=== PATIENT | male | born 1980 ===

== ENCOUNTER 2021-01-04 10:37 | Outpatient (CLI) | payer OTHER ==
[2021-01-04 11:26] VITALS: BP 119/85
--- NOTE | 2021-01-04 11:26 | SLEEP CARE CONSULTATION ---
Information from patient questionnaire entered by Whitney Black. I have reviewed and concur with the information entered by Whitney Black. This document represents the service I personally performed and the decisions made by me, Claudia Riggins ARNP. History of Present Illness Service Date and Time: 01/04/2021 1037 Reason for Visit: New patient Chief Complaint: reports: Unrefreshed sleep, Snoring, Excessive daytime sleepiness, Fatigue, Frequent awakenings at night Date of Onset: over 5 years Usual bedtime: 10-11 pm Time it takes to fall asleep: 1-2 hours Snores at night: Yes Observed to quit breathing while asleep: No Sleeps alone due to snoring: No Number of times waking at night: 2-3 times Reasons for waking at night: reports: Choking, Gasping for air, Bathroom, Other (noise, unknown reason). denies: Snoring Toss, Turn, or Twitch while sleeping: Yes Recalls having dreams: Yes Usually gets out of bed at: 5:15-5:25 am Feels refreshed in the morning: No Morning headache: No (sometimes) Sleepy or fatigued during the day: Yes Ever fallen asleep while driving: No Takes day naps: No Prior sleep studies: No Additional HPI information: I had the pleasure of seeing YOSELIN JUDD today regarding the possibility of him having a sleep disorder. His current complaints are excessive daytime sleepiness, fatigue, frequent night awakenings, snoring and unrefreshed sleep. He feels he can't sleep much, he has trouble relaxing enough to go to sleep and he wakes up frequently at night. He wakes up with nightmares almost every night. He also gets up to use the bathroom even though he is trying to limit his liquids. He has started taking a sleeping pill, Prazosin 1 mg, that has been prescribed for him. He took it last night and still stayed awake until 1130 that night. He feels alcohol does relax him and he sleeps better but he does not want to use alcohol to sleep. - Parasomnia Symptoms Ever been unable to move upon waking from sleep: No Walks in sleep: No (doesn't know) Talks in sleep: Yes Ever acted out dreams in sleep: Yes Ever felt weak in the knees when startled or emotional: Yes Bothered by creepy, crawly, restless sensations in legs: Yes Problems with memory or concentration: Yes (has ADHD, on adderall) Subjective Initial [place] Sleepiness Scale score: 8 (in 2020) Past Medical History Past Medical History: reports: Diabetes (pre-diabetes), Anxiety, Attention deficit Social History The patient's occupation is a Active . [place] Have you smoked in the past 12 months: Yes Cigarettes per day (20/pack): 7 Years of smokin Smoking Pack Years: 3.0 Alcohol use: Yes Alcohol amount and frequency: 4-6 drinks 1-3 times a month Caffeine use: No Family History Family history of sleep disordered breathing: No Family Hx Sleep Apnea: Father: Snoring Allergies and Home Medications Drug allergies reviewed: Yes (NKDA) Home medication list reviewed: Yes Allergy and home medication list: Adderall Prazosin Review of Systems Weight gain over past 5 years: 20 Cardiovascular: reports: palpitations, chest pain Respiratory: reports: wheeze Gastrointestinal: reports: diarrhea Urinary: reports: frequency Neurological: reports: disorientation Psychiatric: reports: Attention Deficit Hyperactivity, anxiety, mood disorder Ear/Nose/Throat: denies: tonsillectomy, wisdom teeth removed (some removed) Endocrine: reports: sluggishness, increased urination Musculoskeletal: reports: joint pain, muscle pain or cramping Immunologic: reports: rash Physical Exam Blood Pressure: 119/85 Cuff size: wrist Heart Rate: 91 O2 Saturation: 98 Height: 5 ft 8 in Weight: 228 lb Body Mass Index: 34.7 BMI Classification: Obese Neck circumference: 16.5 (inches) Nostrils: patent to airflow Mouth and throat: narrow oropharynx Soft palate: long Hard palate: normal Uvula: normal Uvula visualization: 50% Mallampati Class II Tongue: normal in size Tonsils: 1+ Chin and jaw: normal size and position Neck: normal w/o lymphadenopathy or thyromegaly Heart: regular rate and rhythm Lungs: clear bilaterally Impression and Plan 1. Suspected Obstructive Sleep Apnea-Hypopnea Syndrome, as suggested by a history of loud and irregular snoring, gasping or choking in sleep, frequent awakening during the night, unrefreshed sleep, cognitive impairment, and excessive daytime sleepiness. Narrow oropharynx and obesity are common predisposing factors for obstructive sleep apnea-hypopnea syndrome. I recommend proceeding to polysomnography to confirm the diagnosis and to assess severity. If the patient has significant sleep disordered breathing, a manual CPAP titration study will also be performed to find the optimal treatment pressure. I informed the patient of what the sleep studies involve and after some discussion, obtained agreement to proceed. The pathophysiology of obstructive sleep apnea-hypopnea syndrome was discussed with the patient and health risks of cardiovascular and cerebrovascular disease if not treated. Risks of drowsy driving discussed in detail and patient advised to avoid long distance driving and to puller through at the first sign of drowsiness. Patient agreed to plan. * Schedule polysomnography +- manual CPAP titration study and return in 1-2 weeks after the study to discuss result and initiate therapy. * Avoid long distance driving or driving when feeling sleepy. * Avoid alcohol, sedative and muscle relaxant around bedtime. * Attempt to lose weight. * Review instructions provided by trained office staff on how to prepare for the sleep study. * Return for follow-up after sleep study completed. Counseling Topics: Weight loss health impact Visit Type: In Office Time Spent with Patient (minutes): 31 Provider Statement: I spent 100% of the Face to Face Visit with the patient with greater than 50% spent counseling the patient and coordination of care.
== END 2021-01-04 10:38 | disposition home or self-care (01) ==
LOC: SC 10:37
PROVIDERS: ATTEND Nurse Practitioner Family
DX: G47.10 Hypersomnia, unspecified (principal); G47.8 Other sleep disorders; R06.83 Snoring; R41.89 Other symptoms and signs involving cognitive functions and awareness; E66.9 Obesity, unspecified; Z68.34 Body mass index [BMI] 34.0-34.9, adult
CPT/HCPCS: 99203; 99212

== ENCOUNTER 2021-01-13 14:37 | Outpatient (CLI) | payer OTHER | END 2021-01-13 14:38 | disposition home or self-care (01) | LOC: SC 14:37 | PROVIDERS: ATTEND Nurse Practitioner Family | DX: G47.33 Obstructive sleep apnea (adult) (pediatric) (principal); R09.02 Hypoxemia | CPT/HCPCS: 95806 ==

== ENCOUNTER 2021-01-20 10:38 | Outpatient (CLI) | payer OTHER ==
--- NOTE | 2021-01-20 10:59 | SLEEP CARE CONSULTATION ---
Information from patient questionnaire entered by Whitney Black. I have reviewed and concur with the information entered by Whitney Black. This document represents the service I personally performed and the decisions made by , Claudia Riggins ARNP. History of Present Illness Service Date and Time: 01/20/2021 1038 Initial [place] Sleepiness Scale score: 8 (in 2020) Current [place] Sleepiness Scale score: 6 Additional HPI information: YOSELIN JUDD returns for follow up and results of the recently performed home sleep study. I explained the pathophysiology behind obstructive sleep apnea. We then spent quite a bit of time discussing different treatment options. For mild obstructive sleep apnea, surgery and oral appliance are alternatives to nasal CPAP therapy but in moderate or severe cases, nasal CPAP is the most effective and reliable treatment. Because apnea is primarily in supine position, then positional management therapy could be effective. Methods discussed such as positioning with pillows, using a T-shirt with tennis balls in the back, and shown commercial products that have a pillow format on back to prevent supine sleep. I reviewed the impact of weight changes on sleep apnea and strongly recommended losing weight. After some discussion, the patient opted to go with the nasal CPAP therapy. Nasal autoCPAP set at 4-15 cmH20 will be ordered with rationale explained. A manual titration study will be ordered if unable to find optimal pressure with office adjustments. I explained how CPAP machine works with sample devices [id number] Dreamstation and [employer] [id number] and what to expect when using the machine. Using CPAP every night in order to get used to it was emphasized. Patient advised to put CPAP mask on before getting into bed so as not to fall asleep without CPAP. To assist acclimation to CPAP use, it could also be used for a short time during day while reading or watching TV. The patient was instructed to call the CPAP supplier to discuss any mechanical problem that may occur. If the mask given is uncomfortable or is difficult to keep on through the night even with adjustment, contact the CPAP supplier as many will replace with another mask style if notified before 30 days. If snoring or perceives is not getting enough air or too much air from the machine, notify this office. [facility] patient education PAP tips reviewed and given to patient. Patient counseled not drink alcohol less than 4 hours before bedtime as it can increase snoring and apnea. Patient was cautioned about risks of drowsy driving until sleepiness symptoms resolve. Sleep Study - Results Type of Sleep Study: Home sleep study Prior sleep studies: No Polysomnography/Home Sleep Study results: Physician Impression: The quality of the study is fair due to partial loss of airflow signal.. The length of the study is adequate (> 240 minutes). Please also see the tabulated and graphic data. 1. Obstructive Sleep Apnea-Hypopnea (ICD-10 G47.33), moderate, with an AHI of 15.5/hr and teodoro SaO2 of 76%. During the study, the patient had 27 apneas (26 obstructive, 0 central, 1 mixed) and 37 hypopneas. The longest episode lasted 66.0 seconds. The respiratory event s occurred more frequently during supine sleep (supine AHI was 16.2 and non-supine, 7.10). 2. Hypoxemia (ICD-10 R09.02), moderate, with the lowest oxygen saturation of 76 % and 42.9 minutes with SaO2 under 90%. Baseline oxygen saturation was normal (Average oxygen saturation was 92%). Allergies and Home Medications Home medication list reviewed: Yes (no new meds) Review of Systems Review of systems same as previous: Yes (no changes) Physical Exam Heart Rate: 78 O2 Saturation: 96 Height: 5 ft 8 in Weight: 232 lb Body Mass Index: 35.2 BMI Classification: Obese Impression and Plan 1. Obstructive Sleep Apnea-Hypopnea Syndrome, moderate, with lowest oxygen saturation of 76%. Obviously this is the cause of the patients symptoms of unrefreshed sleep, and excessive daytime sleepiness. Positive pressure therapy could benefit pre-diabetes, anxiety and attention deficit. As mentioned above, the patient will be started on nasal autoCPAP therapy with pressure set at 4-15 cmH2O. A manual titration study will be completed if unable to find optimal treatment pressure with office adjustments. Compliance guidelines also reviewed. A copy of compliance guidelines will be given for reference at check out. Because the apnea is more severe supine, I instructed to avoid sleeping supine using pillow positioning until able to start CPAP use. 2. Hypoxemia, moderate, with the lowest oxygen saturation of 76 % and 42.9 minutes with SaO2 under 90%. His baseline oxygen saturation was normal with an average oxygen saturation of 92%. * Nasal auto CPAP therapy, pressure at 4-15 cm H2O. * Attempt to lose weight. * Avoid alcohol consumption near bedtime. * Avoid supine sleep until using CPAP. * The patient is again cautioned about driving until sleepiness completely resolves. * Return one month after CPAP obtained. I will assess response to therapy and compliance at that time. Counseling Topics: Weight loss health impact Visit Type: In Office Time Spent with Patient (minutes): 27 Provider Statement: I spent 100% of the Face to Face Visit with the patient with greater than 50% spent counseling the patient and coordination of care.
== END 2021-01-20 10:39 | disposition home or self-care (01) ==
LOC: SC 10:38
PROVIDERS: ATTEND Nurse Practitioner Family
DX: G47.33 Obstructive sleep apnea (adult) (pediatric) (principal); R09.02 Hypoxemia
CPT/HCPCS: 99212; 99213

== ENCOUNTER 2021-03-21 09:02 | Outpatient (CLI) | payer OTHER ==
--- NOTE | 2021-03-21 09:30 | SLEEP CARE CONSULTATION ---
Information from patient questionnaire entered by Whitney Black. I have reviewed and concur with the information entered by Whitney Black. This document represents the service I personally performed and the decisions made by , Claudia Riggins ARNP. History of Present Illness Service Date and Time: 03/21/2021 0902 Previous diagnosis: Moderate, Obstructive Sleep Apnea-Hypopnea Syndrome AHI: 15.5 (in 2020) Reason for follow up: first compliance Equipment type: CPAP Equipment obtained from: [employer] (got initial supplies, waiting on first order) Mask style: Nasal Mask brand: Respironics Backup mask available: No (will keep old mask when replaced) Last cushion change: 5 weeks Prior sleep studies: Yes Year and Where: 2020 - [facility] Type of Sleep Study: Home sleep study HPI additional information: YOSELIN JUDD was diagnosed to have moderate, AHI 15.5, obstructive sleep apnea- hypopnea syndrome and returned today for CPAP therapy first compliance follow- up. CPAP Compliance Data - Data Reviewed with Patient Average duration of nightly device use: 4 hr 42 min Compliance rate %: 70 (from 02/09/21-03/10/21)(67 last 30) Current pressure setting (cmH2O): 4-15 (median 9.0, avg 12.8, max 13.8) Humidity settin Average residual AHI: 2.3 Subjective Missed days of use due to: reports: other (watch/duty) Patient concerns: reports: nasal congestion, dry mouth, nose, throat (sometimes). denies: aerophagia, mask discomfort, air blowing in eyes, mask leak noise, condensation in mask/hose, epistaxis, other Observed to snore while using device: No Current pressure setting perceived as: too high (not all the time) On therapy, patient: reports: sleeping better, awakening more refreshed, being more awake and alert during the day, more rested overall. denies: drowsiness while driving Initial [place] Sleepiness Scale score: 8 (in 2020) Current [place] Sleepiness Scale score: 6 Allergies and Home Medications Home medication list reviewed: Yes (no new meds) Review of Systems Review of systems same as previous: Yes (no changes) Physical Exam Heart Rate: 79 O2 Saturation: 98 Height: 5 ft 8 in Weight: 236 lb Body Mass Index: 35.9 BMI Classification: Obese Impression and Plan 1. Obstructive Sleep Apnea-Hypopnea Syndrome, moderate, with adequate treatment compliance and good apnea control. On CPAP therapy, the patient has better sleep quality and is more rested overall. Patient pressure might be a little too high but he discovered that this felt this way when he was wearing the mask while awake. He feels he is getting more used to it and getting to know how it works. He is satisfied with current treatment and feels the pressure is comfortable. The patients pressure will be changed to autoCPAP 9-14 cmH20. Patient advised to contact me if pressure change is uncomfortable so that it can be adjusted. Goals for apnea control discussed. Patient encouraged to try to lose weight to reduce apneas and improve overall health. Patient's apnea severity and rationale for treatment to reduce apnea, improve sleep quality and reduce cardiovascular and cerebrovascular events was reviewed. I also reviewed the benefit of consistent device use of CPAP for pre-diabetes, anxiety and attention deficit disorders. * Change auto CPAP pressure to 9-14 cmH2O * Notify me if snoring with mask or feeling that the pressure is too much or too little * Attempt to lose weight * Call this office if any problems using CPAP * Return for follow up in 1-2 months, or sooner if concerns arise Counseling Topics: Spare mask, Weight loss health impact Visit Type: In Office Time Spent with Patient (minutes): 20 Provider Statement: I spent 100% of the Face to Face Visit with the patient with greater than 50% spent counseling the patient and coordination of care.
== END 2021-03-21 09:03 | disposition home or self-care (01) ==
LOC: SC 09:02
PROVIDERS: ATTEND Nurse Practitioner Family
DX: G47.33 Obstructive sleep apnea (adult) (pediatric) (principal); E66.9 Obesity, unspecified; Z68.35 Body mass index [BMI] 35.0-35.9, adult
CPT/HCPCS: 99212; 99213

== ENCOUNTER 2021-05-25 09:14 | Outpatient (CLI) | payer OTHER ==
--- NOTE | 2021-05-25 09:35 | SLEEP CARE CONSULTATION ---
Information from patient questionnaire entered by Whitney Black. I have reviewed and concur with the information entered by Whitney Black. This document represents the service I personally performed and the decisions made by , Claudia Riggins ARNP. History of Present Illness Service Date and Time: 05/25/2021 0914 Previous diagnosis: Moderate, Obstructive Sleep Apnea-Hypopnea Syndrome AHI: 15.5 (in 2020) Reason for follow up: other (2 month with pressure change) Equipment type: CPAP Equipment obtained from: [employer] (getting supplies as needed) Mask style: Nasal Backup mask available: Yes (other mask) Last cushion change: 2 weeks ago Prior sleep studies: Yes Year and Where: 2020 - [facility] Type of Sleep Study: Home sleep study HPI additional information: YOSELIN JUDD was diagnosed to have moderate, AHI 15.5, obstructive sleep apnea- hypopnea syndrome and returned today for CPAP therapy 2 month with pressure change follow-up. CPAP Compliance Data - Data Reviewed with Patient Average duration of nightly device use: 6 hr 22 min Compliance rate %: 95 (60 days) Current pressure setting (cmH2O): 9-14 Humidity settin Average residual AHI: 0.7 Subjective Missed days of use due to: reports: travel Patient concerns: reports: nasal congestion, dry mouth, nose, throat (sometimes dry mouth). denies: aerophagia, mask discomfort, air blowing in eyes, mask leak noise, condensation in mask/hose, epistaxis, other Observed to snore while using device: No Current pressure setting perceived as: comfortable On therapy, patient: reports: sleeping better, awakening more refreshed, being more awake and alert during the day, more rested overall. denies: drowsiness while driving Initial [place] Sleepiness Scale score: 8 (in 2020) Current [place] Sleepiness Scale score: 5 Allergies and Home Medications Home medication list reviewed: Yes (no changes) Review of Systems Review of systems same as previous: Yes (no changes) Physical Exam Heart Rate: 75 O2 Saturation: 99 Height: 5 ft 8 in Weight: 230 lb Body Mass Index: 34.9 BMI Classification: Obese Impression and Plan 1. Obstructive Sleep Apnea-Hypopnea Syndrome, moderate, with good treatment compliance and good apnea control. On CPAP therapy, the patient has better sleep quality and is more rested overall. Patient is very satisfied with current treatment and feels the pressure is comfortable. Patient has been having some increase in nasal congestion and mouth dryness. He is pretty sure he is not breathing with his mouth open at night. He does have a history of allergies. Oral dryness can be reduced by adjusting humidity setting higher or heated hose lower or by adjusting both settings. Verbal instructions given on how to change humidity and heated hose settings with rationale explaining why to change. Patient advised that he can use nasal saline spray to help reduce nasal congestion as needed. He voiced understanding. He has lost 4 pounds and is continue to try to lose weight by increasing his exercise. I encouraged him to continue his efforts. Patient's apnea severity and rationale for treatment to reduce apnea, improve sleep quality and reduce cardiovascular and cerebrovascular events was reviewed. I also reviewed the benefit of consistent device use of CPAP for anxiety, pre-diabetes and ADD. * Continue auto CPAP pressure at 9-14 cmH2O * Notify me if snoring with mask or feeling that the pressure is too much or too little * Continue to try to lose weight * Call this office if any problems using CPAP * Return for follow up in 3 months, or sooner if concerns arise Counseling Topics: Spare mask, Weight loss health impact Visit Type: In Office Time Spent with Patient (minutes): 13 Provider Statement: I spent 100% of the Face to Face Visit with the patient with greater than 50% spent counseling the patient and coordination of care.
== END 2021-05-25 09:15 | disposition home or self-care (01) ==
LOC: SC 09:14
PROVIDERS: ATTEND Nurse Practitioner Family
DX: G47.33 Obstructive sleep apnea (adult) (pediatric) (principal); E66.9 Obesity, unspecified; Z68.34 Body mass index [BMI] 34.0-34.9, adult
CPT/HCPCS: 99212

== ENCOUNTER 2021-10-05 12:41 | Outpatient (CLI) | payer OTHER ==
[2021-10-05 13:27] VITALS: BP 129/89
--- NOTE | 2021-10-05 13:27 | SLEEP CARE CONSULTATION ---
Information from patient questionnaire entered by Lary Montoya MA. I have reviewed and concur with the information entered by Lary Montoya MA. This document represents the service I personally performed and the decisions made by , Claudia Riggins ARNP. History of Present Illness Service Date and Time: 10/05/2021 1241 Previous diagnosis: Moderate, Obstructive Sleep Apnea-Hypopnea Syndrome AHI: 15.5 (in 2020) Reason for follow up: other (4 MONTH ) Equipment type: CPAP Equipment obtained from: [employer] (getting supplies as needed) Mask style: Nasal Backup mask available: Yes (old mask) Last cushion change: 1.5 months Prior sleep studies: Yes Year and Where: 2020 - [facility] Type of Sleep Study: Home sleep study HPI additional information: YOSELIN JUDD was diagnosed to have moderate, AHI 15.5, obstructive sleep apnea- hypopnea syndrome and returned today for CPAP therapy four month follow-up. Sleep Study - Results Type of Sleep Study: Home sleep study Prior sleep studies: Yes Year and Where: 2020 - [facility] CPAP Compliance Data - Data Reviewed with Patient Average duration of nightly device use: 6 hours 11 minutes Compliance rate %: 83 Current pressure setting (cmH2O): 9-14 Average residual AHI: 0.6 Central apnea: 0.0 Obstructive apnea: 0.1 Subjective Missed days of use due to: reports: travel Patient concerns: denies: aerophagia, mask discomfort, air blowing in eyes, mask leak noise, condensation in mask/hose, nasal congestion, dry mouth, nose, throat, epistaxis, other Observed to snore while using device: No Current pressure setting perceived as: comfortable On therapy, patient: reports: sleeping better, awakening more refreshed, being more awake and alert during the day, more rested overall. denies: drowsiness while driving Initial [place] Sleepiness Scale score: 8 (in 2020) Current [place] Sleepiness Scale score: 7 (2021) Allergies and Home Medications Known drug allergies: No Drug allergies reviewed: Yes Home medication list reviewed: Yes (INCREASED ADDERALL BY 10MG) Review of Systems Review of systems same as previous: Yes (no changes) Physical Exam Vital signs obtained and entered by: Jerica MONTOYA CMA [facility] Blood Pressure: 129/89 (RIGHT, PULSE 88) Heart Rate: 80 O2 Saturation: 98 (WITH PAPER MASK) Height: 5 ft 8 in Weight: 233 lb (WITH UNIFORM AND BOOTS) Weight change since last visit: 3 lb gain Body Mass Index: 35.4 BMI Classification: Obese Impression and Plan 1. Obstructive Sleep Apnea-Hypopnea Syndrome, moderate, with good treatment compliance and excellent apnea control. On CPAP therapy, the patient has better sleep quality and is more rested overall. Patient is satisfied with current therapy and has significant improvement of his sleep apnea. Patient's apnea severity and rationale for treatment to reduce apnea, improve sleep quality and reduce cardiovascular and cerebrovascular events was reviewed. I also reviewed the benefit of consistent device use of CPAP for pre-diabetes, anxiety and ADD. Patient has gained weight. Currently patients BMI is 35.4. Obesity increases the risk of apnea, CPAP pressure requirements and overall health risks especially cardiovascular and diabetes. Patient was encouraged to lose weight for their overall health and to reduce apneas. * Continue auto CPAP pressure at 9-14 cmH2O * Notify me if snoring with mask or feeling that the pressure is too much or too little * Attempt to lose weight * Call this office if any problems using CPAP * Return for follow up in 6 months, or sooner if concerns arise Counseling Topics: Spare mask, Weight loss health impact Visit Type: In Office Time Spent with Patient (minutes): 20 Provider Statement: I spent 100% of the Face to Face Visit with the patient with greater than 50% spent counseling the patient and coordination of care.
== END 2021-10-05 12:42 | disposition home or self-care (01) ==
LOC: SC 12:41
PROVIDERS: ATTEND Nurse Practitioner Family
DX: G47.33 Obstructive sleep apnea (adult) (pediatric) (principal); E66.9 Obesity, unspecified; Z68.35 Body mass index [BMI] 35.0-35.9, adult
CPT/HCPCS: 99212; 99213